=== PATIENT | female | born 1965 | race African-American/Black ===

== ENCOUNTER 2021-04-08 08:33 | Day surgery (SDC) | payer OTHER ==
[~2021-04-08] VITALS: Ht 160 cm; Wt 93.1 kg
[~2021-04-08 08:33] MED LIST: ACETAMINOPHEN 500 MG TABLET PO ONE; HYDROmorphone 2 MG/ML VIAL IVP PRN; IV RINGERS,LACTATED 1000ML 1,000 ML IV SCH; MORPHINE SULFATE 2 MG/ML VIAL. IVP PRN; PROCHLORPERAZINE 10 MG/2 ML VIAL. IVP PRN; fentaNYL PF VIAL 100 MCG/2 ML VIAL IVP PRN
[2021-04-08 08:53] VITALS: BP 23/61
[2021-04-08] MEDS ORDERED: SULF1TAB24 PO (08:58)
[2021-04-08] MEDS ORDERED: fentaNYL PF VIAL 100 MCG/2 ML VIAL ONE (09:14)
[2021-04-08] MEDS ORDERED: BUPIVACAINE-EPI 0.25% 30 ML VIAL KIT. ONE (09:14)
--- NOTE | 2021-04-08 09:49 | PDOC4 ---
Operative Note Operative Note Date: April 08, 2021 at 948 Preoperative diagnosis: Left axillary abscess Postoperative diagnosis: Same Procedure: Incision and drainage of left axillary abscess Specimen: Cultures Surgeon: [place] Dictation: Patient is a 55-year-old female seen in the office with a painful mass underneath her left axilla procedure of incision and drainage of axillary abscess was explained to the patient in detail risk benefits were also discussed including bleeding infection alternatives to this procedure also discussed with patient who seemed to understand and gave a verbal written consent to have the procedure performed. Patient was taken to the operating room placed in supine position general anesthesia was initiated once patient was sleeping intubated her left axilla was prepped and draped usual sterile fashion using Betadine scrub and solution. Area around the abscess was injected with quarter percent Marcaine with epinephrine incision made 15 blade scalpel cultures were taken of the small amount of purulent material that was expressed wound was irrigated and suctioned dry of packed with iodoform Nu Gauze and dressed with 4 x 4's and Medipore tape. Patient was awakened and extubated in the operating room taken to recovery in stable condition all sponge instrument needle counts listed as correct estimated blood loss 5 mL NIRAJ MADRID MD Apr 08, 2021 09:49
--- NOTE | 2021-04-08 09:51 | DISCH ---
DISCHARGE INSTRUCTIONS Condition on Discharge Condition on Discharge: Stable Activity After Discharge Activity Instructions for Disc: Activity as tolerated Other activity instructions: May shower in 24 hours Diet after Discharge Diet after Discharge: Regular Wound Incision Care Other wound/incision instructi: Change packing daily Contacting the after DC Call your doctor for: If your condition worsens Follow-Up Follow up with: Dr. Madrid in 2 weeks NIRAJ MADRID MD Apr 08, 2021 09:51
[2021-04-08] MEDS ORDERED: HYDR-2759 PO (10:19)
[2021-04-08 10:25] VITALS: BP 121/47
== END 2021-04-08 11:05 | disposition home or self-care (01) ==
LOC: SURG 08:33
PROVIDERS: ATTEND Surgery
DX: L02.412 Cutaneous abscess of left axilla (principal); J45.909 Unspecified asthma, uncomplicated; Z90.710 Acquired absence of both cervix and uterus; Z98.890 Other specified postprocedural states; Z79.899 Other long term (current) drug therapy
CPT/HCPCS: 10060; 87071; 87075; 87077; 87186; A4930; A6402; J0690; J3010; A4223

== ENCOUNTER → 2021-10-06 | Outpatient (CLI) | payer OTHER ==
[~2021-10-06] MED LIST changes: -ACETAMINOPHEN 500 MG TABLET PO ONE; +HYDR-2759 PO; -HYDROmorphone 2 MG/ML VIAL IVP PRN; -IV RINGERS,LACTATED 1000ML 1,000 ML IV SCH; -MORPHINE SULFATE 2 MG/ML VIAL. IVP PRN; -PROCHLORPERAZINE 10 MG/2 ML VIAL. IVP PRN; +SULF1TAB24 PO; -fentaNYL PF VIAL 100 MCG/2 ML VIAL IVP PRN
--- NOTE | 2021-10-07 09:46 | KCIC ---
Study: XR SHOULDER_RIGHT 2+ VIEWS Indication: Right shoulder pain. Limited range of motion. Comparison: None. 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 No advanced arthrosis at the gleno humeral articulation. Within normal limits acromiohumeral interval on the internal rotation view and scapular Y view. No acute fracture. Impression: 1. No acute fracture or traumatic malalignment. 2. Mild/moderate AC joint arthrosis. Electronically signed by: LUIS A CAMERON MD (10/07/2021 9:43 AM) [id number]
== END ==
LOC: KCIC 13:06
PROVIDERS: ATTEND Family Medicine
DX: M25.511 Pain in right shoulder (principal); M19.011 Primary osteoarthritis, right shoulder
CPT/HCPCS: 73030